=== PATIENT | female | born 1980 | race Caucasian/White ===

== ENCOUNTER 2017-04-15 19:14 | Emergency (ER) | payer MEDICAID ==
[~2017-04-15] VITALS: Ht 162.6 cm; Wt 69.5 kg
[~2017-04-15 19:14] MED LIST: FERR240T9 PO; FERR27TA PO; PREN1TAB49 PO
[2017-04-15 19:18] VITALS: Ht 162.6 cm; Wt 69.5 kg
[2017-04-15] MEDS ORDERED: KETOROLAC 30 MG INJ IM STA (20:52)
--- NOTE | 2017-04-15 21:20 | ERA ---
ER Documentation Chief Complaint Date/Time DATE: 04/15/17 TIME: 21:16 Chief Complaint left thumb pain x 3 weeks, denies injury HPI 36-year-old female presenting with a chief complaint of left thumb pain. Duration of symptoms 2 weeks. No history of trauma. Patient denies any numbness, tingling, doing anything including medications to relieve the symptoms and similar symptoms in the past. Denies stiffness of other joints. Patient has no other complaints at this time. ROS All systems reviewed and are negative except as per history of present illness. Medications Home Meds Active Scripts Ibuprofen* (Motrin*) 400 Mg Tab, 400 MG PO Q6, #30 TAB Prov:SERGEY TORRES PA-C 04/15/17 Reported Medications Ferrous Gluconate (Iron) 1 Tab Tablet, 1 TAB PO BID 11/16/11 Vits W-Ca,Fe,Fa(<1MG) () 1 Tab Tablet, 1 TAB PO D 11/16/11 Ferrous Sulfate (Iron) 1 Tab Tablet, 1 TAB PO 11/16/11 Vits W-Ca,Fe,Fa(<1MG) () 1 Tab Tablet, 1 TAB PO 11/16/11 Allergies Allergies: Coded Allergies: No Known Allergies (Verified Allergy, 11/16/11) Uncoded Allergies: NKDA (Allergy, Mild, 11/16/11) PMhx/Soc Medical and Surgical Hx: pt denies Medical Hx, pt denies Surgical Hx Hx Alcohol Use: No Hx Substance Use: No Hx Tobacco Use: No Smoking Status: Never smoker Physical Exam Vitals Vital Signs Date Time Temp Pulse Resp B/P Pulse Ox O2 Delivery O2 Flow Rate FiO2 04/15/17 19:18 97.8 54 20 123/61 98 Physical Exam Const: Overweight 36-year-old female presenting with daughter Head: Atraumatic Eyes: Normal Conjunctiva ENT: Normal External Ears, Nose and Mouth. Neck: Full range of motion..~ No meningismus. Resp: Clear to auscultation bilaterally Cardio: Regular rate and rhythm, no murmurs Abd: Soft, non tender, non distended. Normal bowel sounds Skin: No petechiae or rashes Back: No midline or flank tenderness Ext: Mild/minimal tenderness of the anatomical snuffbox. Positive Ramo's test positive limited range of motion in all directions secondary to pain. No cyanosis, or edema Neur: Awake and alert Psych: Normal Mood and Affect Results 24 hrs Current Medications Medications (Trade) Dose Ordered Sig/Myriam Route PRN Reason Start Time Stop Time Status Last Admin Dose Admin Ketorolac Tromethamine (Toradol) 30 mg ONCE STAT IM 04/15/17 20:52 04/15/17 20:53 DC 04/15/17 21:01 Procedures/MDM Patient is presenting with left thumb pain as described in history and physical examination. X-ray was ordered to rule out break. Signs and symptoms at this time are most consistent with de Quervain's tenosynovitis. Patient will be given a thumb spica and referred to orthopedics. X-ray results were read by the radiologist and given the following impression: Unremarkable, no acute fracture. Couple suspicion for neurovascular compromise at this time however I am unable to rule out ligamentous or tendon pathologies. Most likely diagnosis is tenosynovitis. Patient will be discharged with ibuprofen and spica splint. Have educated the patient on the management she has verbally acknowledged she understands and agrees. Departure Diagnosis: Primary Impression: De Quervain's tenosynovitis, left Condition: Stable Additional Instructions: Follow up with your PCP within the next 1-3 days for a more thorough evaluation and a possible referral to a specialist. Return the the emergency department immediately if symptoms worsen or change. If you have any questions regarding medications, ask your pharmacist or us before you leave. If any adverse reactions occur while taking your medications, discontinue the treatment and return to the emergency department immediately. Take your medications as directed, and complete the entire course of treatment. SERGEY TORRES PA-C Apr 15, 2017 21:20
--- NOTE | 2017-04-15 22:58 | RADRPT ---
PROCEDURE: X-ray left thumb CLINICAL INDICATION: Injury to the left thumb with pain, with reference marker directed towards th e base of the first metacarpal. TECHNIQUE: 3 views left COMPARISON: None FINDINGS: No acute fracture or dislocation. Soft tissues unremarkable. IMPRESSION: No acute fracture. RPTAT: [facility] Kvng Duran Physician Date Time Electronically viewed and signed by Kvng Duran Physician on 04/15/2017 22:57 RS/
--- NOTE | 2017-04-15 22:59 | RADRPT ---
PROCEDURE: X-ray left wrist CLINICAL INDICATION: Left wrist pain, with reference marker directed towards the lateral base of t he first metacarpal. TECHNIQUE: 4 views left wrist COMPARISON: None FINDINGS: No acute fracture or dislocation. Soft tissues unremarkable. IMPRESSION: No acute fracture. RPTAT: [facility] Physician Antonio Date Time Electronically viewed and signed by Kvng Duran Physician on 04/15/2017 22:59 RS/
[2017-04-15] MEDS ORDERED: IBUP400T22 PO (23:06)
== END 2017-04-15 23:39 | disposition home or self-care (01) ==
LOC: FTE 19:14
DX: M65.4 Radial styloid tenosynovitis [de Quervain] (principal)
CPT/HCPCS: 29125; 73110; 73140; 96372; J1885; Z7502